=== PATIENT | male | born 1995 | race Caucasian/White ===

== ENCOUNTER 2018-01-30 21:09 | Emergency (ER) | payer OTHER ==
[2018-01-30] MEDS ORDERED: AMOXICILLIN/CLAVULANATE POT 875/125 MG TAB PO ONE (22:10)
--- NOTE | 2018-01-30 22:11 | EDPHY ---
H & P Stated Complaint: LAC UNDER L EYE,AND L CHEEK/DOG BITE Time Seen by Provider: 01/30/18 21:59 HPI/ROS: HPI: This is a 22-year-old male who presents with Chief Complaint: Dog bite to face Location: Left cheek Quality: Dog bite Duration: Prior to arrival Signs and Symptoms: No bleeding, no radiation, no numbness, no weakness, no tingling, no incontinence, no decreased range of motion, no swelling, no pain, no fever Timing: Acute Severity: Mild Context: The patient is a 22 y/o male complaining of a dog bite to his face. His roommate's pitbull was playing with his dog when the pitbull bit his face. He believes the dog is up-to-date on it's vaccinations including rabies. The dog bite would not stop bleeding so he decided to present to the emergency department. Denies dental trauma. Denies LOC/head injury/neck pain/dizziness/ nausea/vomiting/amnesia. Reports tetanus is current. Denies any difficulty opening his mouth or swallowing. Modifying Factors: None Comment: ROS: see HPI Constitutional: No fever, no chills, no weight loss Eyes: No blurred vision Respiratory: No shortness of breath, no cough Cardiovascular: No chest pain Gastrointestinal: No nausea, no vomiting no diarrhea Genitourinary: No dysuria Extremities: No myalgias Neurologic: No weakness, no numbness Skin: No rashes Hematologic: No bruising, no bleeding MEDICAL/SURGICAL/SOCIAL HISTORY: Medical history: Generally healthy. Does not take any regular medications. Surgical history: Denies Social history: Lives in [place], single, not employed CONSTITUTIONAL: Extremely polite and cooperative adult white male, awake and alert, no obvious distress HEENT: Puncture wound to left check. 2cm superficial laceration to left cheek. Normocephalic. NECK: supple, no midline tenderness, flexion 45 degrees, extension 45 degrees, right and left lateral flexion 45 degrees. No meningismus. Cardiovascular: Normal S1/S2, regular rate, regular rhythm, without murmur rub or gallop. PULMONARY/CHEST: Symmetrical and nontender. no crepitus. Clear to auscultation bilaterally. Good air movement. No accessory muscle usage. ABDOMEN: Soft, nondistended, nontender, no ecchymosis. PELVIC: no pain with rocking; bilateral hips flexion 125 degrees, extension 30 degrees, with no pain internal rotation and no pain external rotation. BACK: No midline tenderness, no paraspinous spasm, deep tendon reflexes 2/2, no pain with straight leg raise, No foot drop. Achilles reflexes are equal bilaterally. Able to walk on heels and toes without difficulty. EXTREMITIES: 2/2 pulses, strength 5/5, DIP/PIP/MCP flexion/extension intact with good light touch sensation. no deformities, no clubbing, no cyanosis or edema. NEUROLOGICAL: no focal neuro deficits. GCS 15. Light touch sensation intact. SKIN: Warm and dry, no erythema. no rash. Good capillary refill. Source: Patient Exam Limitations: No limitations - Personal History Current Tetanus Diphtheria and Acellular Pertussis (TDAP): Yes - Medical/Surgical History Hx Asthma: No Hx Chronic Respiratory Disease: No Hx Diabetes: No Hx Cardiac Disease: No Hx Renal Disease: No Hx Cirrhosis: No Hx Alcoholism: No Hx HIV/AIDS: No Hx Splenectomy or Spleen Trauma: No Other PMH: TONSIL, FX'S - Social History Smoking Status: Current some day smoker Constitutional: Initial Vital Signs Temperature (C) 36.7 C 01/30/18 21:32 Heart Rate 85 01/30/18 21:32 Respiratory Rate 16 01/30/18 21:32 Blood Pressure 138/73 H 01/30/18 21:32 O2 Sat (%) 93 01/30/18 21:32 O2 Delivery Mode Room Air Allergies/Adverse Reactions: No Known Allergies Allergy (Unverified 01/30/18 21:32) Home Medications: Medication Instructions Recorded Amoxicillin/Clavulanate Pot 875 mg PO BID #14 tab 01/30/18 [Augmentin 875 MG TAB (*)] Medical Decision Making ED Course/Re-evaluation: Patient has a puncture wound but not through and through and 2cm superficial laceration to his left cheek. 5 mL lidocaine epinephrine applied to wounds. Wound was copiously irrigated and cleaned. Steri-Strips applied. Patient started on Augmentin here in the ER prescription given for same. Tetanus up-to-date and rabies immunoglobulin not needed. This patient was seen under the supervision of my secondary supervising physician. I evaluated care for this patient independently. Discussed this patient with Dr. Telles who did not see the patient. Differential Diagnosis: Differential diagnosis includes but is not limited to laceration, abrasion, puncture wound, through and through, dental injury. Departure - Departure Disposition: Home, Routine, Self-Care Clinical Impression: Dog bite of cheek Qualifiers: Encounter type: initial encounter Laterality: left Qualified Code(s): S01.452A - Open bite of left cheek and temporomandibular area, initial encounter Condition: Good Instructions: Animal Bite (ED), Laceration (ED) Additional Instructions: Take Augmentin as prescribed. Do not skip a dose. Keep the Steri-Strips dry and in place for 48 hours. After 48 hours, wash the site daily with mild soap and water; then pat dry. Allow the Steri-Strips to fall off on their own. Return to the ER immediately if you experience redness, red streaks, have fevers /chills, flu like symptoms, limited range of motion, or any other symptoms that concern you. Referrals: [facility],. [Clinic] - Follow Up Only If Needed Prescriptions: Amoxicillin/Clavulanate Pot [Augmentin 875 MG TAB (*)] 875 mg PO BID #14 tab
[2018-01-30 22:52] VITALS: BP 120/78
== END 2018-01-30 22:52 | disposition home or self-care (01) ==
DX: S01.452A Open bite of left cheek and temporomandibular area, initial encounter (principal); F17.200 Nicotine dependence, unspecified, uncomplicated; W54.0XXA Bitten by dog, initial encounter; Y99.8 Other external cause status; Y93.89 Activity, other specified